=== PATIENT | male | born 1935 | race Caucasian/White ===

== ENCOUNTER 2018-08-17 08:45 | Inpatient (IN) | payer MEDICARE ==
[2018-08-17] MEDS ORDERED: ASPIRIN 81 MG TABLET, CHEWABLE PO ONE (09:44)
[2018-08-17] MEDS ORDERED: OXYCODONE-ACETAMINOPHEN 5-325 MG TABLET PO ONE ×2 (09:47→15:08)
--- NOTE | 2018-08-17 09:47 | ER Document Report ---
ED Medical Screen (RME) - General Chief Complaint: Breathing Difficulty Stated Complaint: DIFFICULTY BREATHING Time Seen by Provider: 08/17/18 09:44 Notes: 83 years old male with a history of end-stage renal disease on dialysis presents today with lower chest wall pain all around it whenever he takes a deep breath. And shortness of breath for the last few hours to a day. No fever chills or productive cough. Increase in pain on taking a deep breath. Has a history of PE in the past. Had dialysis yesterday. On examination-elderly pleasant male difficulty in hearing, seems to be mild to moderate discomfort. Diffuse chest wall tenderness over the lower chest wall all around. Bilateral lower lung inspiratory crackles were heard. No wheezes No leg edema TRAVEL OUTSIDE OF THE [place] IN LAST 30 DAYS: No - Related Data Allergies/Adverse Reactions: No Known Allergies Allergy (Unverified 08/17/18 08:49) Physical Exam - Vital signs Vitals: Temp Pulse Resp BP Pulse Ox 98.2 F 115 H 16 135/60 H 98 08/17/18 08:56 08/17/18 08:56 08/17/18 08:56 08/17/18 08:56 08/17/18 08:56 Course - Vital Signs Vital signs: Temp Pulse Resp BP Pulse Ox 98.2 F 115 H 16 135/60 H 98 08/17/18 08:56 08/17/18 08:56 08/17/18 08:56 08/17/18 08:56 08/17/18 08:56
[2018-08-17 10:21] LABS: ABSOLUTE BASOPHILS # (AUTO) 0.1 10^3/uL (0.0-0.2); ABSOLUTE EOSINOPHILS # (AUTO) 0.1 10^3/uL (0.0-0.6); ABSOLUTE LYMPHOCYTES (AUTO) 1.9 10^3/uL (0.5-4.7); ABSOLUTE NEUT (AUTO) 13.4 10^3/uL (1.7-8.2); BASOPHILS % (AUTO) 0.5 % (0-2); EOSINOPHILS % (AUTO) 0.6 % (0-6); HEMATOCRIT 27.9 % (37.9-51.0); HEMOGLOBIN 9.2 g/dL (13.5-17.0); LYMPHOCYTES % (AUTO) 11.6 % (13-45); MEAN CORPUSCULAR HGB CONC 32.9 g/dL (32.0-36.0); MEAN CORPUSCULAR VOLUME 88 fl (80-97); MONOCYTES % (AUTO) 5.8 % (3-13); PLATELET COUNT 134 10^3/uL (150-450); RED BLOOD COUNT 3.17 10^6/uL (4.35-5.55); RED CELL DISTRIBUTION WIDTH 15.7 % (11.5-14.0); SEGMENTED NEUTROPHILS % (AUTO) 81.5 % (42-78); TOTAL CELLS COUNTED % (AUTO) 100 %; WHITE BLOOD COUNT 16.4 10^3/uL (4.0-10.5)
--- NOTE | 2018-08-17 10:28 | RADIOLOGY REPORT (SQ) ---
EXAM DESCRIPTION: CHEST SINGLE VIEW COMPLETED DATE/TIME: 08/17/2018 10:17 am REASON FOR STUDY: Chest pain/shortness of breath COMPARISON: None. EXAM PARAMETERS: NUMBER OF VIEWS: One view. TECHNIQUE: Single frontal radiographic view of the chest acquired. RADIATION DOSE: NA LIMITATIONS: None. FINDINGS: LUNGS AND PLEURA: Elevation of the right hemidiaphragm. Bibasilar atelectasis or infiltr ate, more so on the right. No pneumothorax or pleural effusion. MEDIASTINUM AND HILAR STRUCTURES: No masses. Contour normal. HEART AND VASCULAR STRUCTURES: Heart normal in size. Normal vasculature. BONES: No acute findings. HARDWARE: Prior anterior median sternotomy, valve prostheses and dialysis catheter with the tip in t he region of the right atrium. OTHER: No other significant finding. IMPRESSION: 1. Elevation of the right hemidiaphragm. Bibasilar atelectasis or infiltrate, more so on the right. TECHNICAL DOCUMENTATION: JOB ID: [id number] [employer]- All Rights Reserved Reading location - IP/workstation name: [email or web address]
[2018-08-17 10:40] LABS: ALANINE AMINOTRANSFERASE 18 U/L (21-72); ALBUMIN 3.6 g/dL (3.5-5.0); ALKALINE PHOSPHATASE 90 U/L (38-126); ANION GAP 14 (5-19); ASPARTATE AMINO TRANSFERASE 23 U/L (17-59); BILIRUBIN,DIRECT 0.5 mg/dL (0.0-0.4); BLOOD UREA NITROGEN 29 mg/dL (7-20); CALCIUM 8.6 mg/dL (8.4-10.2); CARBON DIOXIDE 25 mmol/L (22-30); CHLORIDE 100 mmol/L (98-107); CREATINE KINASE 49 U/L (55-170); GLUCOSE 151 mg/dL (75-110); POTASSIUM 3.7 mmol/L (3.6-5.0); SODIUM 138.8 mmol/L (137-145); TOTAL PROTEIN 7.8 g/dL (6.3-8.2)
[2018-08-17] MEDS ORDERED: FUROSEMIDE INJ/PF 40 MG/4 ML SDV IV ONE (11:05)
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
[2018-08-17 11:29] LABS: LIPASE 526.9 U/L (23-300)
[2018-08-17 11:35] LABS: CREATINE KINASE MB 2.04 ng/mL (<4.55)
[2018-08-17 11:45] LABS: TROPONIN I 0.732 ng/mL
--- NOTE | 2018-08-17 11:46 | EKG REPORT ---
SEVERITY:- ABNORMAL ECG - SINUS TACHYCARDIA BORDERLINE R WAVE PROGRESSION, ANTERIOR LEADS REPOL ABNRM SUGGESTS ISCHEMIA, ANT-LAT LEADS : Confirmed by: Betty Gomez MD 17-Aug-2018 11:45:28
[2018-08-17 12:57] LABS: APPEARANCE,URINE CLOUDY; BILIRUBIN,URINE NEGATIVE (NEGATIVE); COLOR,URINE YELLOW; GLUCOSE, URINE >=500 mg/dL (NEGATIVE); KETONES,URINE TRACE mg/dL (NEGATIVE); LEUKOCYTE ESTERASE,URINE LARGE (NEGATIVE); NITRITE,URINE NEGATIVE (NEGATIVE); PROTEIN,URINE >=500 mg/dL (NEGATIVE); UROBILINOGEN,URINE NEGATIVE mg/dL (<2.0)
--- NOTE | 2018-08-17 13:05 | RADIOLOGY REPORT (SQ) ---
EXAM DESCRIPTION: U/S ABDOMEN LIMITED W/O DOP COMPLETED DATE/TIME: 08/17/2018 12:48 pm REASON FOR STUDY: RUQ pain COMPARISON: None. TECHNIQUE: Dynamic and static grayscale images acquired of the right upper quadrant and recorded on PACS. Additional selected color Doppler and spectral images recorded. LIMITATIONS: Study limited due to acoustical interference from fat or from air in the bowel. FINDINGS: PANCREAS: Obscured. LIVER: No masses. Echotexture normal. LIVER VASCULATURE: Normal directional flow of the main portal vein and hepatic veins. GALLBLADDER: No stones. Normal wall thickness. No pericholecystic fluid. ULTRASOUND-DETECTED RODRIGUES'S SIGN: Negative. INTRAHEPATIC DUCTS AND COMMON DUCT: CBD and intrahepatic ducts normal caliber. No filling defects. INFERIOR VENA CAVA: Obscured. AORTA: Obscured. RIGHT KIDNEY: Normal size. Normal echogenicity. No solid or suspicious masses. No hydronephrosis. No calcifications. PERITONEAL CAVITY AND RIGHT PLEURAL SPACE: No ascites or effusions. OTHER: No other significant finding. IMPRESSION: NORMAL RIGHT UPPER QUADRANT ULTRASOUND. PANCREAS PARTIALLY OBSCURED BY GAS. TECHNICAL DOCUMENTATION: JOB ID: [id number]- All Rights Reserved Reading location - IP/workstation name: [email or web address]
[2018-08-17] MEDS ORDERED: CEFTRIAXONE INJ 1000 MG VIAL IV ONE (15:07)
[2018-08-17] MEDS ORDERED: NITROGLYCERIN 0.4 MG/TAB 25 TAB/BOTTLE SL PRN (15:47)
[2018-08-17] MEDS ORDERED: DEXTROSE 40% GEL 15 GM TUBE PO PRN ×2 (15:52)
[2018-08-17] MEDS ORDERED: DEXTROSE 50%-WATER 25 GM/50 ML DISP.SYRIN IV PRN ×2 (15:52)
[2018-08-17] MEDS ORDERED: GLUCAGON,HUMAN RECOMB 1 MG INJ IM PRN (15:52)
[2018-08-17] MEDS ORDERED: METOPROLOL TARTRATE PF/INJ 5 MG/5 ML SDV IV PRN (19:31)
[2018-08-17] MEDS ORDERED: HYDRALAZINE HCL INJ/PF 20 MG/1 ML SDV IV PRN (19:31)
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
[2018-08-17] MEDS: TAMSULOSIN HCL 0.4 MG CAP.SR.24H PO SCH (19:42)
[2018-08-17] MEDS: SODIUM BICARBONATE 650 MG TABLET PO SCH (19:42)
[2018-08-17] MEDS: METOPROLOL TARTRATE 50 MG TABLET PO SCH (21:17)
[2018-08-18] MEDS: INSULIN LISPRO 100 UNIT/ML 3 ML VIAL SUBCUT PRN ×2 (00:31→12:33)
[2018-08-18] MEDS: OXYCODONE-ACETAMINOPHEN 5-325 MG TABLET PO PRN ×4 (01:53→23:53)
[2018-08-18 05:40] LABS: CHOLESTEROL 148.06 mg/dL (0-200); TRIGLYCERIDES 91 mg/dL (<150)
[2018-08-18 05:43] LABS: ABSOLUTE BASOPHILS # (AUTO) 0.1 10^3/uL (0.0-0.2); ABSOLUTE EOSINOPHILS # (AUTO) 0.4 10^3/uL (0.0-0.6); ABSOLUTE LYMPHOCYTES (AUTO) 2.1 10^3/uL (0.5-4.7); ABSOLUTE MONOCYTES (AUTO) 0.9 10^3/uL (0.1-1.4); ABSOLUTE NEUT (AUTO) 10.4 10^3/uL (1.7-8.2); BASOPHILS % (AUTO) 0.8 % (0-2); EOSINOPHILS % (AUTO) 2.7 % (0-6); HEMATOCRIT 23.9 % (37.9-51.0); LYMPHOCYTES % (AUTO) 14.9 % (13-45); MEAN CORPUSCULAR HEMOGLOBIN 29.3 pg (27.0-33.4); MEAN CORPUSCULAR HGB CONC 33.6 g/dL (32.0-36.0); MEAN CORPUSCULAR VOLUME 87 fl (80-97); MONOCYTES % (AUTO) 6.2 % (3-13); PLATELET COUNT 125 10^3/uL (150-450); RED BLOOD COUNT 2.74 10^6/uL (4.35-5.55); RED CELL DISTRIBUTION WIDTH 15.5 % (11.5-14.0); SEGMENTED NEUTROPHILS % (AUTO) 75.4 % (42-78); TOTAL CELLS COUNTED % (AUTO) 100 %; WHITE BLOOD COUNT 13.8 10^3/uL (4.0-10.5)
[2018-08-18 05:54] LABS: DIRECT LDL 81 mg/dL (<100)
[2018-08-18 08:55] LABS: ANION GAP 11 (5-19); BLOOD UREA NITROGEN 40 mg/dL (7-20); CALCIUM 8.4 mg/dL (8.4-10.2); CARBON DIOXIDE 25 mmol/L (22-30); CHLORIDE 100 mmol/L (98-107); GLUCOSE 116 mg/dL (75-110); POTASSIUM 3.5 mmol/L (3.6-5.0); SODIUM 136.1 mmol/L (137-145)
[2018-08-18] MEDS: FOLIC ACID/VITAMIN B COMP W-C CAPSULE PO SCH (09:22)
[2018-08-18] MEDS: ASPIRIN 81 MG TABLET, CHEWABLE PO SCH (09:22)
[2018-08-18] MEDS: METOPROLOL TARTRATE 50 MG TABLET PO SCH ×2 (09:22→21:59)
[2018-08-18] MEDS: SODIUM BICARBONATE 650 MG TABLET PO SCH ×2 (09:22→17:11)
[2018-08-18] MEDS: FLUTICASONE/SALMETEROL DISKUS 100-50 MCG/DOSE IH SCH (09:22)
[2018-08-18] MEDS: AMLODIPINE BESYLATE 10 MG TABLET PO SCH (09:22)
--- NOTE | 2018-08-18 11:38 | RADIOLOGY REPORT (SQ) ---
EXAM DESCRIPTION: CT CHEST WITHOUT; CT ABD/PELVIS NO ORAL OR IV COMPLETED DATE/TIME: 08/18/2018 10:55 am REASON FOR STUDY: R chest pain. New hemidiaphragm on CXR; R sided abdominal pain R10.10 UPPER ABDOM INAL PAIN, UNSPECIFIED R07.1 CHEST PAIN ON BREATHING COMPARISON: Chest x-ray 08/17/2018 Abdominal ultrasound 08/17/2018 TECHNIQUE: CT scan of the chest performed without intravenous contrast using helical scanning techni que. Images reviewed with lung, soft tissue and bone windows. Reconstructed coronal and sagittal MPR images reviewed. All images stored on PACS. CT scan of the abdomen and pelvis performed without intravenous contrast and withoutoral contrast usi ng helical scanning technique with dynamic intravenous contrast injection. Images reviewed with lung , soft tissue and bone windows. Reconstructed coronal and sagittal MPR images reviewed. All images stored on PACS. All CT scanners at this facility use dose modulation, iterative reconstruction, and/or weight based d osing when appropriate to reduce radiation dose to as low as reasonably achievable (ALARA). [facility]: Dose Right [facility]: CareDose [facility]: Dose Right [facility]: Teradose 4D [facility]: Smart Technologies RADIATION DOSE: CT Rad equipment meets quality standard of care and radiation dose reduction techniq ues were employed. CTDIvol: 5.1 - 5.9 mGy. DLP: 525 mGy-cm. mGy. LIMITATIONS: No technical limitations. FINDINGS: CHEST: AXILLAE: No adenopathy. CHEST WALL: No masses. No subcutaneous air. LUNGS: On the right side, there is diffuse atelectasis just above the right hemidiaphragm. Minimal b andlike atelectasis left lung base. No pleural effusions or pneumothorax. Airways are patent. PLEURA: No effusions. No calcifications. THYROID: No masses or significant asymmetry. HILAR AND MEDIASTINAL STRUCTURES: There is mediastinal adenopathy, index nodes as follows: Right paratracheal lymph node 1.3 x 0.9 cm axial image 14 Pretracheal lymph node 2.4 x 1.1 cm axial image 24 AP window node 1.7 x 1.2 cm axial image 24 Sub- carinal lymph node 3.2 x 2 cm axial image 33 There is bilateral hilar adenopathy more difficult to measure because of lack of IV contrast today AORTA AND GREAT VESSELS: No aneurysm. Old sternotomy with metallic aortic valve replacement. HEART: Moderate cardiomegaly. No pericardial effusion. Old sternotomy with metallic aortic valve re placement. Very heavily calcified coronary arteries HARDWARE AND LIFELINES: Right-sided central venous dialysis catheter tip in the superior vena cava BONES: Healed left anterior 3rd rib fracture OTHER: No other significant finding. ABDOMEN AND PELVIS: LIVER: 2 cm hypodense nodule posterior right lobe liver subdiaphragmatic surface axial image 18. No gross intrahepatic biliary ductal dilatation. Common bile duct is dilated at the manjinder hepatis, with a possible pancreatic head mass 2 cm in diameter on coronal image 48. SPLEEN: Normal size. No focal lesions. PANCREAS: Abnormal pancreatic head. Question 2 cm mass at the pancreatic head with mild dilatation o f the remainder the pancreatic duct. Dilated common bile duct the manjinder hepatis. No peripancreatic fluid worrisome for acute pancreatitis GALLBLADDER: Distended, no radiopaque stones ADRENAL GLANDS: No significant masses or asymmetry. RIGHT KIDNEY AND URETER: No solid masses. Assessment limited by lack of IV contrast. No significant calcifications. No hydronephrosis or hydroureter. LEFT KIDNEY AND URETER: Question left upper pole 3.4 x 2.8 cm mass versus lobulation of renal cortex on axial image 37 and coronal image 58. No significant calcifications. No hydronephrosis or hydro ureter. AORTA AND VESSELS: No aneurysm. RETROPERITONEUM: No retroperitoneal adenopathy, hemorrhage or masses. APPENDIX: Normal. LARGE AND SMALL BOWEL: No dilatation. No masses. No wall thickening. ABDOMINAL WALL: No hernia or masses. PERITONEAL CAVITY: No free air. No free fluid. No peritoneal implants or masses. PELVIS: Urinary bladder is markedly distended. There is an air-fluid level in the urinary bladder, q uestion recent urinary catheterization. Bladder calculi are present along the right and left uretera l orifices into the bladder, with a 1.5 cm stone in the left bladder trigone measuring 13 16 Hounsfie ld units and a 9 mm stone at the right bladder trigone. Markedly enlarged prostate BONES: No significant or acute findings. OTHER: No other significant finding. IMPRESSION: Findings worrisome for a pancreatic head mass with biliary ductal dilatation and pancrea tic ductal dilatation. Findings discussed with Jessica Mcgraw Right basilar atelectasis versus pneumonia Mediastinal adenopathy Question right lobe liver and upper pole left kidney masses NORMAL CT OF THE ABDOMEN AND PELVIS WITHOUT INTRAVENOUS CONTRAST. TECHNICAL DOCUMENTATION: JOB ID: [id number] Quality ID # [id number]: Final reports with documentation of one or more dose reduction techniques (e.g., Au tomated exposure control, adjustment of the mA and/or kV according to patient size, use of iterative reconstruction technique) 2010 [employer]- All Rights Reserved Reading location - IP/workstation name: [id number]
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
--- NOTE | 2018-08-18 13:48 | EKG REPORT ---
SEVERITY:- BORDERLINE ECG - SINUS RHYTHM BORDERLINE R WAVE PROGRESSION, ANTERIOR LEADS BORDERLINE T ABNORMALITIES, INFERIOR LEADS : Confirmed by: Betty Gomez MD 18-Aug-2018 13:47:20
[2018-08-18] MEDS ORDERED: ACETAMINOPHEN 325 MG TABLET PO PRN (16:46)
[2018-08-18] MEDS: TAMSULOSIN HCL 0.4 MG CAP.SR.24H PO SCH (17:11)
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
--- NOTE | 2018-08-18 23:24 | RADIOLOGY REPORT (SQ) ---
EXAM DESCRIPTION: CT CHEST ANGIOGRAPHY WITHOUT THEN WITH IV CONTRAST COMPLETED DATE/TME: 08/18/2018 00:00 CLINICAL HISTORY: 83 years, Male, EVAL FOR PE COMPARISON: None. PROCEDURE: CLINICAL HISTORY: 83 years Male EVAL FOR PE COMPARISON: None. TECHNIQUE: Contiguous axial images were obtained through the chest abdomen and pelvis during the infusion of IV contrast. Reformatted images obtained. MIP reformatted images obtained. This exam was performed according to our department optimization program which includes automated exposure control, adjustment of the mA and/or kv according to patient size and/or use of iterative reconstruction technique. FINDINGS: Central catheter tip is in the right atrium. Loops of gas-filled small bowel are mildly dilated. Moderate stool is in the ascending colon. Partial functional obstruction because of constipation is possible but these findings are nonspecific. Calcific density measures approximately 13 mm at the right posterior urinary bladder. The right ureter is not dilated to suggest obstruction of the right renal collecting system. There is no right perinephric stranding. This density is at the UVJ. Correlation with surgical history is recommended. The prostate is enlarged and heterogeneous. Neoplasm is not excluded. Common duct is significantly enlarged distally, where it measures 26 mm diameter. There are numerous low-attenuation lesions within the pancreas that are nonspecific. Inflammatory lesions are possible. Neoplasm is not excluded. There is no significant dilatation of the pancreatic duct. There are mildly enlarged para-aortic and mesenteric lymph nodes. There is a small hiatal hernia. Gas is in the urinary bladder. Correlation with history of recent catheterization is recommended. This is nonspecific. No other definite acute abnormality. The heart is enlarged. Extensive atelectasis and consolidation involves the right lung. There is mild enlargement of multiple mediastinal lymph nodes. Parahilar lymph nodes are also enlarged on the right. Because of timing, this study is not sensitive for PE. However, there are multiple pulmonary emboli in proximal branches of the right pulmonary artery predominantly involving supply to the posterior right lung. Motion limits sensitivity for PE as well. No other definite PE is seen. No evidence of saddle embolus. There is a partially exophytic low-attenuation lesion involving the left kidney. Detail is limited. IMPRESSION: Numerous pulmonary emboli in branches of the pulmonary artery supplying the right lung. Nonspecific high attenuation lesion at the right posterior urinary bladder does not cause obstruction. Cardiomegaly. Extensive right lung disease. Nonspecific pancreatic abnormalities with enlargement of the common duct. Neoplasm is not excluded. Enlargement of the prostate. See additional findings above.
--- NOTE | 2018-08-18 23:25 | RADIOLOGY REPORT (SQ) ---
EXAM DESCRIPTION: CT ABDOMEN PELVIS WITH IV CONTRAST COMPLETED DATE/TME: 08/18/2018 00:00 CLINICAL HISTORY: 83 years, Male, PAIN - ATTN: PANCREAS AND L KIDNEY COMPARISON: None. TECHNIQUE: Images stored on PACS. All CT scanners at this facility use dose modulation, iterative reconstruction, and/or weight based dosing when appropriate to reduce radiation dose to as low as reasonably achievable (ALARA). [facility]: Dose Right [facility]: CareDose [facility]: Dose Right [facility]: Teradose 4D [facility]: [place] LIMITATIONS: None. FINDINGS: FINDINGS: Central catheter tip is in the right atrium. Loops of gas-filled small bowel are mildly dilated. Moderate stool is in the ascending colon. Partial functional obstruction because of constipation is possible but these findings are nonspecific. Calcific density measures approximately 13 mm at the right posterior urinary bladder. The right ureter is not dilated to suggest obstruction of the right renal collecting system. There is no right perinephric stranding. This density is at the UVJ. Correlation with surgical history is recommended. The prostate is enlarged and heterogeneous. Neoplasm is not excluded. Common duct is significantly enlarged distally, where it measures 26 mm diameter. There are numerous low-attenuation lesions within the pancreas that are nonspecific. Inflammatory lesions are possible. Neoplasm is not excluded. There is no significant dilatation of the pancreatic duct. There are mildly enlarged para-aortic and mesenteric lymph nodes. There is a small hiatal hernia. Gas is in the urinary bladder. Correlation with history of recent catheterization is recommended. This is nonspecific. No other definite acute abnormality. The heart is enlarged. Extensive atelectasis and consolidation involves the right lung. There is mild enlargement of multiple mediastinal lymph nodes. Parahilar lymph nodes are also enlarged on the right. Because of timing, this study is not sensitive for PE. However, there are multiple pulmonary emboli in proximal branches of the right pulmonary artery predominantly involving supply to the posterior right lung. Motion limits sensitivity for PE as well. No other definite PE is seen. No evidence of saddle embolus. There is a partially exophytic low-attenuation lesion involving the left kidney. Detail is limited. IMPRESSION: Numerous pulmonary emboli in branches of the pulmonary artery supplying the right lung. Nonspecific high attenuation lesion at the right posterior urinary bladder does not cause obstruction. Cardiomegaly. Extensive right lung disease. Nonspecific pancreatic abnormalities with enlargement of the common duct. Neoplasm is not excluded. Enlargement of the prostate. See additional findings above. IMPRESSION: TECHNICAL DOCUMENTATION: Quality ID # 436: Final reports with documentation of one or more dose reduction techniques (e.g., Automated exposure control, adjustment of the mA and/or kV according to patient size, use of iterative reconstruction technique) 2010 [email or web address]- All Rights Reserved
[2018-08-19 00:10] LABS: ABSOLUTE BASOPHILS # (AUTO) 0.1 10^3/uL (0.0-0.2); ABSOLUTE EOSINOPHILS # (AUTO) 0.2 10^3/uL (0.0-0.6); ABSOLUTE LYMPHOCYTES (AUTO) 2.7 10^3/uL (0.5-4.7); ABSOLUTE MONOCYTES (AUTO) 0.8 10^3/uL (0.1-1.4); ABSOLUTE NEUT (AUTO) 10.4 10^3/uL (1.7-8.2); EOSINOPHILS % (AUTO) 1.6 % (0-6); HEMATOCRIT 25.1 % (37.9-51.0); HEMOGLOBIN 8.3 g/dL (13.5-17.0); LYMPHOCYTES % (AUTO) 19.3 % (13-45); MEAN CORPUSCULAR HEMOGLOBIN 28.8 pg (27.0-33.4); MEAN CORPUSCULAR VOLUME 87 fl (80-97); MONOCYTES % (AUTO) 5.4 % (3-13); PLATELET COUNT 145 10^3/uL (150-450); RED BLOOD COUNT 2.88 10^6/uL (4.35-5.55); RED CELL DISTRIBUTION WIDTH 15.4 % (11.5-14.0); SEGMENTED NEUTROPHILS % (AUTO) 72.7 % (42-78); TOTAL CELLS COUNTED % (AUTO) 100 %; WHITE BLOOD COUNT 14.3 10^3/uL (4.0-10.5)
[2018-08-19 00:16] LABS: INTERNATIONAL RATION (INR) 1.02; PROTHROMBIN TIME 13.9 SEC (11.4-15.4)
[2018-08-19 00:17] LABS: PARTIAL THROMBOPLASTIN TIME 36.3 SEC (23.5-35.8)
[2018-08-19] MEDS ORDERED: HEPARIN SOD (PORCINE) 1,000 UNIT/ML 10 ML VIAL IV ONE (00:20)
[2018-08-19] MEDS ORDERED: HEPARIN SODIUM,PORCINE/D5W 25,000 UNIT/250 ML RTUINJ IV PRN (00:57)
[2018-08-19] MEDS ORDERED: HEPARIN SOD (PORCINE) 1,000 UNIT/ML 10 ML VIAL IV PRN (00:57)
[2018-08-19 01:38] LABS: APPEARANCE,URINE SLIGHTLY-CLOUDY; BILIRUBIN,URINE NEGATIVE (NEGATIVE); COLOR,URINE YELLOW; GLUCOSE, URINE 150 mg/dL (NEGATIVE); KETONES,URINE TRACE mg/dL (NEGATIVE); LEUKOCYTE ESTERASE,URINE TRACE (NEGATIVE); NITRITE,URINE NEGATIVE (NEGATIVE); PROTEIN,URINE 100 mg/dL (NEGATIVE); URINE SPECIFIC GRAVITY 1.023; UROBILINOGEN,URINE NEGATIVE mg/dL (<2.0)
[2018-08-19] MEDS ORDERED: EPOETIN ALFA INJ 20000 UNIT/1 ML VIAL (RENAL) IV PRN (05:00)
[2018-08-19] MEDS ORDERED: NORMAL SALINE 1000 ML 1,000 ML IV PRN (05:00)
[2018-08-19 06:09] LABS: HEMATOCRIT 22.9 % (37.9-51.0); MEAN CORPUSCULAR HGB CONC 33.3 g/dL (32.0-36.0); MEAN CORPUSCULAR VOLUME 87 fl (80-97); PLATELET COUNT 148 10^3/uL (150-450); RED BLOOD COUNT 2.62 10^6/uL (4.35-5.55); RED CELL DISTRIBUTION WIDTH 15.2 % (11.5-14.0); RETICULOCYTE COUNT (AUTO) 1.89 % (0.66-2.85); WHITE BLOOD COUNT 12.8 10^3/uL (4.0-10.5)
[2018-08-19 06:15] LABS: HEMOGLOBIN 7.6 g/dL (13.5-17.0)
[2018-08-19 06:36] LABS: ANION GAP 13 (5-19); BLOOD UREA NITROGEN 50 mg/dL (7-20); CALCIUM 8.3 mg/dL (8.4-10.2); CARBON DIOXIDE 24 mmol/L (22-30); CHLORIDE 97 mmol/L (98-107); GLUCOSE 155 mg/dL (75-110); POTASSIUM 3.7 mmol/L (3.6-5.0); SODIUM 133.8 mmol/L (137-145)
[2018-08-19 06:47] LABS: IRON(TIBC) < 10.1 ug/dL (49-181)
[2018-08-19 09:17] LABS: CARCINOEMBRYONIC ANTIGEN 5.6 ng/mL (<3.0); PROSTATE SPECIFIC ANTIGEN 2.62 ng/mL (<4.00)
--- NOTE | 2018-08-19 09:24 | PDOC CONSULTATION ---
Consultation Consult Date: 08/19/18 Consult reason:: Hematology Oncology consultation was requested for patient with abnormal CT scans and Pulmonary Emboli History of Present Illness Admission Date/PCP: 08/18/18 15:37 LOUIS LACY JR, MD History of Present Illness: ILENE HIDALGO is a 83 year old male who was recently started on hemodialysis 2 weeks ago for ESRD. He was also diagnosed with recurrent UTIs over the past year and bladder stones. He states that about 1 week ago, he developed pleuritic pain with breathing. The pain was not only in his chest but in his entire body with every breath he took. He had similar pain many years ago when he was diagnosed with PE. He does not remember how long he was treated for this , but he believes it was not very long. Today, he states that his breathing difficulties and pain are much improved. He is currently receiving dialysis. CT scans have confirmed Pulmonary Emboli in the right lung as well as multi abnormalities in the lung, pancreas, kidney, and prostate. However, these are all non-specific an may be either inflammatory or malignant. 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 Social History Information Source: Patient Lives with: Spouse/Significant other Smoking Status: Never Smoker Frequency of Alcohol Use: None Hx Recreational Drug Use: No Drugs: None Hx Prescription Drug Abuse: No Past Social History Note: He has 3 children and 3 grandchildren. No pets. - Advance Directive Resuscitation Status: Full Code Family History Family History: Reviewed & Not Pertinent Parental Family History Reviewed: Yes - Mother with emphysema. Children Family History Reviewed: No Sibling(s) Family History Reviewed.: Yes - Brother and sister with emphysema. Medication/Allergy Home Medications: Amlodipine Besylate [Norvasc 10 mg Tablet] 10 mg PO DAILY 08/17/18 B Complex W-C No.20/Folic Acid [Nephrocaps Softgel] 1 mg PO DAILY 08/17/18 Fluticasone/Salmeterol [Advair 100-50 Diskus 14 Dose/Diskus] 1 puff PO DAILY Insulin Glargine,Hum.rec.anlog [Lantus Solostar] 15 units SQ QHS 08/17/18 Insulin Lispro [Humalog Kwikpen U-100] 8 units SQ MEALS 08/17/18 Metoprolol Tartrate [Lopressor 50 mg Tablet] 50 mg PO Q12 08/17/18 Sodium Bicarbonate 650 mg PO BID 08/17/18 Tamsulosin HCl [Flomax] 0.4 mg PO QPM 08/17/18 Allergies/Adverse Reactions: No Known Allergies Allergy (Unverified 08/17/18 08:49) Review of Systems Constitutional: ABSENT: fever(s), headache(s) Eyes: ABSENT: visual disturbances Ears: ABSENT: hearing changes Nose, Mouth, and Throat: ABSENT: sore throat Cardiovascular: PRESENT: dyspnea on exertion Respiratory: PRESENT: dyspnea Gastrointestinal: PRESENT: constipation. ABSENT: nausea Genitourinary: PRESENT: as per HPI Musculoskeletal: PRESENT: as per HPI Integumentary: ABSENT: rash Neurological: ABSENT: confusion, numbness, weakness Physical Exam Vital Signs: Temp Pulse Resp BP Pulse Ox 98.1 F 80 14 166/82 H 96 08/19/18 08:47 08/19/18 08:47 08/19/18 08:47 08/19/18 08:47 08/19/18 08:47 Intake & Output 08/18/18 08/19/18 08/20/18 06:59 06:59 06:59 Intake Total 903 300 Output Total 650 Balance 253 300 Weight 67.1 kg General appearance: PRESENT: no acute distress, well-developed, well-nourished Head exam: PRESENT: normocephalic Eye exam: PRESENT: conjunctiva pink Mouth exam: PRESENT: tongue midline Neck exam: ABSENT: lymphadenopathy, tenderness Respiratory exam: PRESENT: clear to auscultation paresh, unlabored Cardiovascular exam: PRESENT: RRR GI/Abdominal exam: PRESENT: soft. ABSENT: tenderness Extremities exam: ABSENT: pedal edema Neurological exam: PRESENT: alert, awake, oriented to person, oriented to place , oriented to time, oriented to situation Psychiatric exam: PRESENT: appropriate affect Skin exam: PRESENT: normal color Results Laboratory Results: 08/19/18 05:46 08/19/18 05:46 08/18/18 08/19/18 08/19/18 23:56 01:12 05:46 WBC 14.3 H RBC 2.88 L Hgb 8.3 L Hct 25.1 L MCV 87 MCH 28.8 MCHC 33.0 RDW 15.4 H Plt Count 145 L Seg Neutrophils % 72.7 Lymphocytes % 19.3 Monocytes % 5.4 Eosinophils % 1.6 Basophils % 1.0 Absolute Neutrophils 10.4 H Absolute Lymphocytes 2.7 Absolute Monocytes 0.8 Absolute Eosinophils 0.2 Absolute Basophils 0.1 Retic Count (auto) Absolute Retic Sodium 133.8 L Potassium 3.7 Chloride 97 L Carbon Dioxide 24 Anion Gap 13 BUN 50 H Creatinine 4.32 H Est GFR ( Amer) 16 L Est GFR (Non-Af Amer) 13 L Glucose 155 H Calcium 8.3 L Iron < 10.1 L TIBC 193 L % Saturation UNABLE TO CALCULATE Ferritin 305.00 Folate 18.80 Urine Color YELLOW Urine Appearance SLIGHTLY-CLOUDY Urine pH 6.0 Ur Specific [place] 1.023 Urine Protein 100 H Urine Glucose (UA) 150 H Urine Ketones TRACE H Urine Blood NEGATIVE Urine Nitrite NEGATIVE Ur Leukocyte Esterase TRACE H Urine WBC (Auto) 20 Urine RBC (Auto) 0 Blood Type Antibody Screen 08/19/18 08/19/18 05:46 06:41 WBC 12.8 H RBC 2.62 L Hgb 7.6 L Hct 22.9 L MCV 87 MCH 29.0 MCHC 33.3 RDW 15.2 H Plt Count 148 L Seg Neutrophils % Lymphocytes % Monocytes % Eosinophils % Basophils % Absolute Neutrophils Absolute Lymphocytes Absolute Monocytes Absolute Eosinophils Absolute Basophils Retic Count (auto) 1.89 Absolute Retic 0.050 Sodium Potassium Chloride Carbon Dioxide Anion Gap BUN Creatinine Est GFR ( Amer) Est GFR (Non-Af Amer) Glucose Calcium Iron TIBC % Saturation Ferritin Folate Urine Color Urine Appearance Urine pH Ur Specific [place] Urine Protein Urine Glucose (UA) Urine Ketones Urine Blood Urine Nitrite Ur Leukocyte Esterase Urine WBC (Auto) Urine RBC (Auto) Blood Type B POSITIVE Antibody Screen NEGATIVE Impressions: Chest X-Ray 08/17/18 09:44 IMPRESSION: 1. Elevation of the right hemidiaphragm. Bibasilar atelectasis or infiltrate, more so on the right. Abdomen Ultrasound 08/17/18 11:03 IMPRESSION: NORMAL RIGHT UPPER QUADRANT ULTRASOUND. PANCREAS PARTIALLY OBSCURED BY GAS. Abdomen/Pelvis CT 08/18/18 00:00 IMPRESSION: Numerous pulmonary emboli in branches of the pulmonary artery supplying the right lung. Nonspecific high attenuation lesion at the right posterior urinary bladder does not cause obstruction. Cardiomegaly. Extensive right lung disease. Nonspecific pancreatic abnormalities with enlargement of the common duct. Neoplasm is not excluded. Enlargement of the prostate. See additional findings above. IMPRESSION: TECHNICAL DOCUMENTATION: Quality ID # 436: Final reports with documentation of one or more dose reduction techniques (e.g., Automated exposure control, adjustment of the mA and/or kV according to patient size, use of iterative reconstruction technique) 2010 [employer]- All Rights Reserved Chest CT 08/18/18 00:00 IMPRESSION: Findings worrisome for a pancreatic head mass with biliary ductal dilatation and pancreatic ductal dilatation. Findings discussed with Jessica Mcgraw Right basilar atelectasis versus pneumonia Mediastinal adenopathy Question right lobe liver and upper pole left kidney masses NORMAL CT OF THE ABDOMEN AND PELVIS WITHOUT INTRAVENOUS CONTRAST. Chest/Abdomen CTA 08/18/18 00:00 IMPRESSION: Numerous pulmonary emboli in branches of the pulmonary artery supplying the right lung. Nonspecific high attenuation lesion at the right posterior urinary bladder does not cause obstruction. Cardiomegaly. Extensive right lung disease. Nonspecific pancreatic abnormalities with enlargement of the common duct. Neoplasm is not excluded. Enlargement of the prostate. See additional findings above. Status: Image reviewed by me - and discussed with radiologist. Assessment & Plan - Diagnosis (1) ESRD (end stage renal disease) Is this a current diagnosis for this admission?: Yes Plan: Currently receiving hemodialysis (2) Pulmonary embolism Is this a current diagnosis for this admission?: Yes Plan: He is currently on a heparin drip, but when possible, may be transitioned to an oral agent. May need to discuss with renal as far as best choice in this situation, but a newer oral agent, if appropriate is OK with me. I would continue this for at least 6 months, and perhaps longer. (3) Anemia in chronic kidney disease (CKD) Is this a current diagnosis for this admission?: Yes Plan: He also appears to have iron deficiency. I agree with blood transfusion, iron infusion, and Procrit. I will defer to renal for these. (4) Constipation Is this a current diagnosis for this admission?: Yes Plan: Aggressive stool regimen with senokot-S or Miralax may be beneficial. - Plan Summary Plan Summary: I discussed patient's care with Hospitalist (Jessica Mcgraw) this morning. I also discussed CT findings with the patient and his and a copy of the report was given to his . Although he has several areas that are highly suspicious for metastatic cancer, I do not see anything that would be easily biopsied. THe areas may also be inflammatory. I discussed possible biopsy with the patient, and he would prefer NOT to have biopsy if possible. I will plan to see him again as an outpatient and follow these areas with repeat CT scans. I have also ordered PSA, CEA, and CA19-9 to see if these will help us determine source. Although they are non-specific, it may help in decision making process. I will continue to follow him during this admission and as outpatient. Please call with any questions or concerns.
--- NOTE | 2018-08-19 10:50 | PDOC PROGRESS REPORT ---
Subjective Progress Note for:: 08/19/18 Subjective:: I am seeing the patient today during dialysis treatment. He does not really have any new or any complaints at all. He tells me that he still feels the right upper quadrant pain on deep breathing but not as much. Other than that he denies any shortness of breath, chest pains, nausea nor vomiting today. He did have some vomiting of the oral contrast this was given to him yesterday for the CT scan of the abdomen. I reviewed records from [facility] from [place] when he was admitted there on 08/02/2018. Apparently he came in with uremic symptoms so dialysis was started back then. Also noted reports of the CT scan of the chest and abdomen with IV contrast that were done yesterday. Apparently patient has pulmonary embolism and is currently on heparin drip. He also has multiple abnormal findings in the pancreas, left kidney and liver associated with BPH. Oncologist, Dr. Galindo has been consulted. Currently he is stable during dialysis treatment. He is also receiving 2 units of packed RBC for the anemia. His blood pressure is mildly elevated. Otherwise is tolerating dialysis well. Reason For Visit: CHEST PAIN Physical Exam Vital Signs: Temp Pulse Resp BP Pulse Ox 98.2 F 92 14 184/83 H 96 08/19/18 09:24 08/19/18 09:24 08/19/18 09:24 08/19/18 09:24 08/19/18 09:24 Intake & Output 08/18/18 08/19/18 08/20/18 06:59 06:59 06:59 Intake Total 903 840 Output Total 650 300 Balance 253 540 Weight 67.1 kg Vitals during dialysis: Blood pressure 184/83, heart rate of 92, blood flow rate of 350 mL/min, dialysate flow rate of 600 mL/min. Exam: General appearance: PRESENT: no acute distress, cooperative, well-developed, well-nourished Head exam: PRESENT: atraumatic, normocephalic Eye exam: PRESENT: conjunctiva pale, PERRLA. ABSENT: scleral icterus Neck exam: ABSENT: JVD Respiratory exam: PRESENT: Normal breath sounds. ABSENT: crackles, rales, rhonchi, unlabored, wheezes Cardiovascular exam: PRESENT: Regular rate rhythm -+S1, +S2. ABSENT: diastolic murmur, systolic murmur GI/Abdominal exam: PRESENT: normal bowel sounds, soft. ABSENT: guarding, mass, tenderness Extremities exam: ABSENT: No edema Neurological exam: PRESENT: alert, awake, oriented to person, place and time. Skin exam: PRESENT: dry, warm, Results Laboratory Results: 08/19/18 05:46 08/19/18 05:46 08/18/18 08/19/18 08/19/18 23:56 01:12 05:46 WBC 14.3 H RBC 2.88 L Hgb 8.3 L Hct 25.1 L MCV 87 MCH 28.8 MCHC 33.0 RDW 15.4 H Plt Count 145 L Seg Neutrophils % 72.7 Lymphocytes % 19.3 Monocytes % 5.4 Eosinophils % 1.6 Basophils % 1.0 Absolute Neutrophils 10.4 H Absolute Lymphocytes 2.7 Absolute Monocytes 0.8 Absolute Eosinophils 0.2 Absolute Basophils 0.1 Retic Count (auto) Absolute Retic Sodium 133.8 L Potassium 3.7 Chloride 97 L Carbon Dioxide 24 Anion Gap 13 BUN 50 H Creatinine 4.32 H Est GFR ( Amer) 16 L Est GFR (Non-Af Amer) 13 L Glucose 155 H Calcium 8.3 L Iron < 10.1 L TIBC 193 L % Saturation UNABLE TO CALCULATE Ferritin 305.00 Prostate Specific Ag Vitamin B12 752.0 Folate 18.80 Urine Color YELLOW Urine Appearance SLIGHTLY-CLOUDY Urine pH 6.0 Ur Specific [place] 1.023 Urine Protein 100 H Urine Glucose (UA) 150 H Urine Ketones TRACE H Urine Blood NEGATIVE Urine Nitrite NEGATIVE Ur Leukocyte Esterase TRACE H Urine WBC (Auto) 20 Urine RBC (Auto) 0 Blood Type Antibody Screen 08/19/18 08/19/18 08/19/18 05:46 05:46 06:41 WBC 12.8 H RBC 2.62 L Hgb 7.6 L Hct 22.9 L MCV 87 MCH 29.0 MCHC 33.3 RDW 15.2 H Plt Count 148 L Seg Neutrophils % Lymphocytes % Monocytes % Eosinophils % Basophils % Absolute Neutrophils Absolute Lymphocytes Absolute Monocytes Absolute Eosinophils Absolute Basophils Retic Count (auto) 1.89 Absolute Retic 0.050 Sodium Potassium Chloride Carbon Dioxide Anion Gap BUN Creatinine Est GFR ( Amer) Est GFR (Non-Af Amer) Glucose Calcium Iron TIBC % Saturation Ferritin Prostate Specific [place] 2.620 Vitamin B12 Folate Urine Color Urine Appearance Urine pH Ur Specific [place] Urine Protein Urine Glucose (UA) Urine Ketones Urine Blood Urine Nitrite Ur Leukocyte Esterase Urine WBC (Auto) Urine RBC (Auto) Blood Type B POSITIVE Antibody Screen NEGATIVE Impressions: Chest X-Ray 08/17/18 09:44 IMPRESSION: 1. Elevation of the right hemidiaphragm. Bibasilar atelectasis or infiltrate, more so on the right. Abdomen Ultrasound 08/17/18 11:03 IMPRESSION: NORMAL RIGHT UPPER QUADRANT ULTRASOUND. PANCREAS PARTIALLY OBSCURED BY GAS. Abdomen/Pelvis CT 08/18/18 00:00 IMPRESSION: Numerous pulmonary emboli in branches of the pulmonary artery supplying the right lung. Nonspecific high attenuation lesion at the right posterior urinary bladder does not cause obstruction. Cardiomegaly. Extensive right lung disease. Nonspecific pancreatic abnormalities with enlargement of the common duct. Neoplasm is not excluded. Enlargement of the prostate. See additional findings above. IMPRESSION: TECHNICAL DOCUMENTATION: Quality ID # 436: Final reports with documentation of one or more dose reduction techniques (e.g., Automated exposure control, adjustment of the mA and/or kV according to patient size, use of iterative reconstruction technique) 2010 [employer]- All Rights Reserved Chest CT 08/18/18 00:00 IMPRESSION: Findings worrisome for a pancreatic head mass with biliary ductal dilatation and pancreatic ductal dilatation. Findings discussed with Jessica Mcgraw Right basilar atelectasis versus pneumonia Mediastinal adenopathy Question right lobe liver and upper pole left kidney masses NORMAL CT OF THE ABDOMEN AND PELVIS WITHOUT INTRAVENOUS CONTRAST. Chest/Abdomen CTA 08/18/18 00:00 IMPRESSION: Numerous pulmonary emboli in branches of the pulmonary artery supplying the right lung. Nonspecific high attenuation lesion at the right posterior urinary bladder does not cause obstruction. Cardiomegaly. Extensive right lung disease. Nonspecific pancreatic abnormalities with enlargement of the common duct. Neoplasm is not excluded. Enlargement of the prostate. See additional findings above. Assessment & Plan - Diagnosis (1) Right upper quadrant abdominal pain Is this a current diagnosis for this admission?: Yes Plan: Note to have multiple abnormalities on pancreas, left kidney and right liver. Oncology consulted. (2) ESRD (end stage renal disease) Is this a current diagnosis for this admission?: Yes Plan: This was noted to be secondary to combination of hypertension and diabetes from records from [facility]. We will do dialysis today for 3 hours, using the patient's PermCath, with 3 potassium bath, blood flow rate of 350 mL per minute, dialysate flow rate of 600 mL per minute, ultrafiltration 2 L as tolerated, on systemic heparin and Procrit with 20,000 units during dialysis intravenously. Patient will be monitored throughout dialysis treatment with associated blood transfusion. Vital signs will be monitored carefully. Next dialysis will be planned on Wednesday if the patient is still here in the hospital. Otherwise if the patient is discharged over the weekend he can go back to [place] dialysis unit where he is is scheduled to do his regular dialysis treatments. (3) Pulmonary embolism Is this a current diagnosis for this admission?: Yes Plan: Patient currently on heparin drip. If the patient will be switched to oral anticoagulant, will recommend Eliquis from nephrology standpoint. (4) Anemia in chronic kidney disease (CKD) Is this a current diagnosis for this admission?: Yes Plan: Patient is receiving 2 units of packed RBC during dialysis. We will also give Procrit 20,000 units IV. Patient is probably going to need iron as well but will hold it for now. Dr. Galindo agreed on this treatments. (5) Diabetes Qualifiers: Diabetes mellitus type: type 2 Diabetes mellitus complication status: without complication Is this a current diagnosis for this admission?: Yes (6) HTN (hypertension) Qualifiers: Hypertension type: essential hypertension Qualified Code(s): I10 - Essential (primary) hypertension Is this a current diagnosis for this admission?: Yes Plan: Currently elevated metastases probably due to blood transfusion. Continue current management and adjust treatment as necessary. (7) Elevated lipase Is this a current diagnosis for this admission?: Yes (8) Elevated troponin Is this a current diagnosis for this admission?: Yes - Time Time with patient: 15-25 minutes
[2018-08-19] MEDS: ASPIRIN 81 MG TABLET, CHEWABLE PO SCH (12:24)
[2018-08-19] MEDS: AMLODIPINE BESYLATE 10 MG TABLET PO SCH (12:24)
[2018-08-19] MEDS: SODIUM BICARBONATE 650 MG TABLET PO SCH ×2 (12:24→17:30)
[2018-08-19] MEDS: FOLIC ACID/VITAMIN B COMP W-C CAPSULE PO SCH (12:24)
[2018-08-19] MEDS: METOPROLOL TARTRATE 50 MG TABLET PO SCH ×2 (12:24→21:24)
[2018-08-19] MEDS: FLUTICASONE/SALMETEROL DISKUS 100-50 MCG/DOSE IH SCH (12:24)
[2018-08-19 13:31] LABS: HEMATOCRIT 31.9 % (37.9-51.0); MEAN CORPUSCULAR HGB CONC 33.7 g/dL (32.0-36.0); MEAN CORPUSCULAR VOLUME 89 fl (80-97); PLATELET COUNT 151 10^3/uL (150-450); RED BLOOD COUNT 3.59 10^6/uL (4.35-5.55); RED CELL DISTRIBUTION WIDTH 14.8 % (11.5-14.0); WHITE BLOOD COUNT 13.7 10^3/uL (4.0-10.5)
[2018-08-19 13:33] LABS: HEMOGLOBIN 10.8 g/dL (13.5-17.0)
[2018-08-19] MEDS: TAMSULOSIN HCL 0.4 MG CAP.SR.24H PO SCH (17:30)
[2018-08-19] MEDS: INSULIN LISPRO 100 UNIT/ML 3 ML VIAL SUBCUT PRN ×2 (18:02→21:29)
[2018-08-19] MEDS ORDERED: APIXABAN 2.5 MG TABLET PO ONE (20:58)
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
[2018-08-20] MEDS: OXYCODONE-ACETAMINOPHEN 5-325 MG TABLET PO PRN (05:43)
[2018-08-20] MEDS: INSULIN LISPRO 100 UNIT/ML 3 ML VIAL SUBCUT PRN ×2 (07:45→12:37)
--- NOTE | 2018-08-20 09:47 | PDOC PROGRESS REPORT ---
Subjective Progress Note for:: 08/20/18 Subjective:: Patient feeling better today after dialysis yesterday as well as blood transfusions. He is anxious to go home. Reason For Visit: CHEST PAIN Physical Exam Vital Signs: Temp Pulse Resp BP Pulse Ox 98.1 F 78 12 123/46 L 95 08/20/18 07:18 08/20/18 07:18 08/20/18 07:18 08/20/18 07:18 08/20/18 07:18 Intake & Output 08/19/18 08/20/18 08/21/18 06:59 06:59 06:59 Intake Total 903 1346 Output Total 650 2675 Balance 253 -1329 Weight 67.1 kg 67.1 kg General appearance: PRESENT: no acute distress Head exam: PRESENT: normocephalic Respiratory exam: PRESENT: unlabored Extremities exam: ABSENT: pedal edema Neurological exam: PRESENT: alert, awake Psychiatric exam: PRESENT: appropriate affect Skin exam: PRESENT: normal color Results Laboratory Results: 08/19/18 13:05 08/19/18 05:46 08/19/18 08/19/18 08/19/18 05:46 06:41 13:05 WBC 13.7 H RBC 3.59 L Hgb 10.8 L D Hct 31.9 L MCV 89 MCH 30.0 MCHC 33.7 RDW 14.8 H Plt Count 151 Vitamin B12 752.0 Blood Type B POSITIVE Antibody Screen NEGATIVE Impressions: Chest X-Ray 08/17/18 09:44 IMPRESSION: 1. Elevation of the right hemidiaphragm. Bibasilar atelectasis or infiltrate, more so on the right. Abdomen Ultrasound 08/17/18 11:03 IMPRESSION: NORMAL RIGHT UPPER QUADRANT ULTRASOUND. PANCREAS PARTIALLY OBSCURED BY GAS. Abdomen/Pelvis CT 08/18/18 00:00 IMPRESSION: Numerous pulmonary emboli in branches of the pulmonary artery supplying the right lung. Nonspecific high attenuation lesion at the right posterior urinary bladder does not cause obstruction. Cardiomegaly. Extensive right lung disease. Nonspecific pancreatic abnormalities with enlargement of the common duct. Neoplasm is not excluded. Enlargement of the prostate. See additional findings above. IMPRESSION: TECHNICAL DOCUMENTATION: Quality ID # 436: Final reports with documentation of one or more dose reduction techniques (e.g., Automated exposure control, adjustment of the mA and/or kV according to patient size, use of iterative reconstruction technique) 2010 [employer]- All Rights Reserved Chest CT 08/18/18 00:00 IMPRESSION: Findings worrisome for a pancreatic head mass with biliary ductal dilatation and pancreatic ductal dilatation. Findings discussed with Jessica Mcgraw Right basilar atelectasis versus pneumonia Mediastinal adenopathy Question right lobe liver and upper pole left kidney masses NORMAL CT OF THE ABDOMEN AND PELVIS WITHOUT INTRAVENOUS CONTRAST. Chest/Abdomen CTA 08/18/18 00:00 IMPRESSION: Numerous pulmonary emboli in branches of the pulmonary artery supplying the right lung. Nonspecific high attenuation lesion at the right posterior urinary bladder does not cause obstruction. Cardiomegaly. Extensive right lung disease. Nonspecific pancreatic abnormalities with enlargement of the common duct. Neoplasm is not excluded. Enlargement of the prostate. See additional findings above. 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 I will be happy to follow this as outpatient. (3) Anemia in chronic kidney disease (CKD) Is this a current diagnosis for this admission?: Yes Plan: Improved. Will defer to Dr. Marsh. He received Procrit. He does not currently need IV iron. (4) Constipation Is this a current diagnosis for this admission?: Yes - Plan Summary Plan Summary: I again discussed the CT abnormalities. He does not wish to pursue biopsy at this time. I agree. Will discuss further follow-up CT scans as outpatient in a few weeks. All questions were answered. No problem with plan for discharge today from my standpoint. Please call if needed.
[2018-08-20] MEDS ORDERED: APIXABAN 5 MG TABLET PO SCH ×2 (10:00)
[2018-08-20] MEDS: ASPIRIN 81 MG TABLET, CHEWABLE PO SCH (10:06)
[2018-08-20] MEDS: METOPROLOL TARTRATE 50 MG TABLET PO SCH (10:07)
[2018-08-20] MEDS: SODIUM BICARBONATE 650 MG TABLET PO SCH (10:07)
[2018-08-20] MEDS: AMLODIPINE BESYLATE 10 MG TABLET PO SCH (10:07)
[2018-08-20] MEDS: FLUTICASONE/SALMETEROL DISKUS 100-50 MCG/DOSE IH SCH (10:07)
[2018-08-20] MEDS: FOLIC ACID/VITAMIN B COMP W-C CAPSULE PO SCH (10:07)
[2018-08-20 12:54] VITALS: BP 135/60
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
== END 2018-08-20 13:40 | disposition home or self-care (01) | DRG 175 ==
LOC: ER 08:45 → EH 14:03 → INTOOBSV 14:03 → 3N 18:16 → OBSVTOIN 08-18 15:37
PROVIDERS: ADMIT Emergency Medicine; ATTEND Emergency Medicine
PROC: 30233N1 Transfusion of Nonautologous Red Blood Cells into Peripheral Vein, Percutaneous Approach (ICD-10-PCS; principal; 2018-08-19)
PROC: 5A1D70Z Performance of Urinary Filtration, Intermittent, Less than 6 Hours Per Day (ICD-10-PCS; 2018-08-19)
DX: I26.99 Other pulmonary embolism without acute cor pulmonale (principal); J18.9 Pneumonia, unspecified organism; N18.6 End stage renal disease; I12.0 Hypertensive chronic kidney disease with stage 5 chronic kidney disease or end stage renal disease; N28.9 Disorder of kidney and ureter, unspecified; R91.8 Other nonspecific abnormal finding of lung field; K86.89 Other specified diseases of pancreas; N42.89 Other specified disorders of prostate; E11.22 Type 2 diabetes mellitus with diabetic chronic kidney disease; N20.0 Calculus of kidney; N40.0 Benign prostatic hyperplasia without lower urinary tract symptoms; D63.1 Anemia in chronic kidney disease; K59.00 Constipation, unspecified; Z99.2 Dependence on renal dialysis; Z91.15 Patient's noncompliance with renal dialysis; Z95.2 Presence of prosthetic heart valve; Z79.01 Long term (current) use of anticoagulants; Z79.4 Long term (current) use of insulin; Z79.51 Long term (current) use of inhaled steroids; Z79.899 Other long term (current) drug therapy; Z86.711 Personal history of pulmonary embolism
CPT/HCPCS: 36415; 36430; 71045; 71250; 71275; 74176; 74177; 76705; 80048; 80053; 80061; 81001; 82378; 82550; 82553; 82607; 82728; 82746; 82962; 83540; 83550; 83690; 83735; 84153; 84484; 85025; 85027; 85045; 85610; 85730; 86301; 86850; 86900; 86901; 86920; 87086; 93005; 93010; 96374; 99285; G0378; J0360; J0696; J1644; J1815; J1940; J3490; P9016; Q4081